=== PATIENT | male | born 1990 | race Hispanic/Latino ===

== ENCOUNTER 2018-10-07 19:18 | Emergency (ER) | payer OTHER ==
--- NOTE | 2018-10-07 20:45 | EDPHYS ---
Physician Documentation [facility] Name: Anton Stacy Age: 27 yrs Sex: Male : 1990 Arrival Date: 10/07/2018 Time: 19:28 Bed 3 Private MD: ED Physician Abdoulaye Santos HPI: 10/07 19:52 This 27 yrs old Male presents to ER via [employer] with complaints of Laceration. jr8 19:52 The patient has a laceration related to: Self Inflicted occurred Snf, and there are no jr8 complicating factors. The injury was self inflicted. The laceration(s) is(are) located on the dorsal aspect of left forearm. Onset: The symptoms/episode began/occurred acutely, today. Associated signs and symptoms: The patient has no apparent associated signs or symptoms. The patient has experienced similar episodes in the past, a few times. The patient has not recently seen a physician. Stated that he was upset and cut himself. Denies suicidal ideations . Historical: - Allergies: 19:36 No Known Allergies; jd3 - Home Meds: 19:36 blood pressure med [Active]; thyroid med [Active]; jd3 - PMHx: 19:36 Hypertension; Thyroid problem; jd3 - PSHx: 19:36 None; jd3 - Immunization history:: Adult Immunizations up to date, Last tetanus immunization: up to date. - Social history:: Smoking status: Patient/guardian denies using tobacco. - Ebola Screening: : Patient negative for fever greater than or equal to 101.5 degrees Fahrenheit, and additional compatible Ebola Virus Disease symptoms. ROS: 19:52 Eyes: Negative for injury, pain, redness, and discharge, ENT: Negative for injury, jr8 pain, and discharge, Neck: Negative for injury, pain, and swelling, Cardiovascular: Negative for chest pain, palpitations, and edema, Respiratory: Negative for shortness of breath, cough, wheezing, and pleuritic chest pain, Abdomen/GI: Negative for abdominal pain, nausea, vomiting, diarrhea, and constipation, Back: Negative for injury and pain, MS/Extremity: Negative for injury and deformity, Neuro: Negative for headache, weakness, numbness, tingling, and seizure. 19:52 Skin: Positive for laceration(s), of the dorsal aspect of left forearm. Exam: 19:52 Eyes: Pupils equal round and reactive to light, extra-ocular motions intact. Lids and jr8 lashes normal. Conjunctiva and sclera are non-icteric and not injected. Cornea within normal limits. Periorbital areas with no swelling, redness, or edema. ENT: Nares patent. No nasal discharge, no septal abnormalities noted. Tympanic membranes are normal and external auditory canals are clear. Oropharynx with no redness, swelling, or masses, exudates, or evidence of obstruction, uvula midline. Mucous membranes moist. Neck: Trachea midline, no thyromegaly or masses palpated, and no cervical lymphadenopathy. Supple, full range of motion without nuchal rigidity, or vertebral point tenderness. No Meningismus. Cardiovascular: Regular rate and rhythm with a normal S1 and S2. No gallops, murmurs, or rubs. Normal PMI, no JVD. No pulse deficits. Respiratory: Lungs have equal breath sounds bilaterally, clear to auscultation and percussion. No rales, rhonchi or wheezes noted. No increased work of breathing, no retractions or nasal flaring. Abdomen/GI: Soft, non-tender, with normal bowel sounds. No distension or tympany. No guarding or rebound. No evidence of tenderness throughout. Back: No spinal tenderness. No costovertebral tenderness. Full range of motion. MS/ Extremity: Pulses equal, no cyanosis. Neurovascular intact. Full, normal range of motion. Neuro: Awake and alert, GCS 15, oriented to person, place, time, and situation. Cranial nerves II-XII grossly intact. Motor strength 5/5 in all extremities. Sensory grossly intact. Cerebellar exam normal. Normal gait. 19:52 Skin: injury, laceration(s), the wound is approximately 8 cm(s), with a depth of 1 cm(s), of the dorsal aspect of left forearm, that can be described as no foreign body, linear, without bleeding. Vital Signs: 19:36 BP 103 / 77; Pulse 64; Resp 17 S; Temp 98.3(O); Pulse Ox 98% on R/A; Weight 195.04 kg jd3 (R); Height 5 ft. 11 in. (180.34 cm) (R); Pain 0/10; 19:36 Body Mass Index 59.97 (195.04 kg, 180.34 cm) jd3 Laceration: 19:52 Wound Repair of 8cm ( 3.1in ) subcutaneous laceration to dorsal aspect of left forearm. jr8 Distal neuro/vascular/tendon intact. Wound prep: Extensive cleansing with betadine, Wound explored extensively. Skin closed with 5 jonn [place] using staple gun. Patient tolerated well. MDM: 19:43 Patient medically screened. [facility] 19:52 Data reviewed: vital signs, nurses notes, and as a result, I will discharge patient. jr8 Data interpreted: Pulse oximetry: on room air is 98 %. Interpretation: normal. Counseling: I had a detailed discussion with the patient and/or guardian regarding: the historical points, exam findings, and any diagnostic results supporting the discharge/admit diagnosis, the need for outpatient follow up, a family practitioner, to return to the emergency department if symptoms worsen or persist or if there are any questions or concerns that arise at home. 19:56 ED course: Patient stated that he is up to date on Tetanus . jr8 Administered Medications: No medications were administered Disposition: 10/08 13:58 Co-signature as Attending Physician, Abdoulaye Santos MD I agree with the assessment and [facility] plan of care. Disposition: 10/07/18 19:56 Discharged to Home. Impression: Laceration without foreign body of left forearm. - Condition is Stable. - Discharge Instructions: Laceration Care, Adult, Stitches, Jonn, or Adhesive Wound Closure. - Medication Reconciliation Form, Thank You Letter, Antibiotic Education, Prescription Opioid Use form. - Follow up: Private Physician; When: 7 - 10 days; Reason: Wound Recheck, Recheck today's complaints, Continuance of care, Staple/Suture removal, Re-evaluation by your physician. - Problem is new. - Symptoms have improved. Signatures: Abdoulaye Santos MD MD cha Roszak, Josh, PA PA jr8 Robert Almeida RN RN jd3 Corrections: (The following items were deleted from the chart) 10/07 20:10 19:56 10/07/2018 19:56 Discharged to Home. Impression: Laceration without foreign body jd3 of left forearm. Condition is Stable. Forms are Medication Reconciliation Form, Thank You Letter, Antibiotic Education, Prescription Opioid Use. Follow up: Private Physician; When: 7 - 10 days; Reason: Wound Recheck, Recheck today's complaints, Continuance of care, Staple/Suture removal, Re-evaluation by your physician. Problem is new. Symptoms have improved. jr8
--- NOTE | 2018-10-07 20:45 | ER ---
Nurse's Notes [facility] Name: Anton Stacy Age: 27 yrs Sex: Male : 1990 Arrival Date: 10/07/2018 Time: 19:28 Bed 3 Private MD: Diagnosis: Laceration without foreign body of left forearm Presentation: 10/07 19:30 Presenting complaint: Patient states: "I cut my self with a razor. I did it because I jd3 was angry, not because I wanted to hurt myself.". Transition of care: patient was not received from another setting of care. Onset of symptoms was October 07, 2018. Risk Assessment: Do you want to hurt yourself or someone else? Patient reports no desire to harm self or others. Initial Sepsis Screen: Does the patient meet any 2 criteria? No. Patient's initial sepsis screen is negative. Does the patient have a suspected source of infection? No. Patient's initial sepsis screen is negative. Care prior to arrival: None. 19:30 Method Of Arrival: [employer]: [employer] jd3 19:30 Acuity: MATT 4 jd3 Historical: - Allergies: 19:36 No Known Allergies; jd3 - Home Meds: 19:36 blood pressure med [Active]; thyroid med [Active]; jd3 - PMHx: 19:36 Hypertension; Thyroid problem; jd3 - PSHx: 19:36 None; jd3 - Immunization history:: Adult Immunizations up to date, Last tetanus immunization: up to date. - Social history:: Smoking status: Patient/guardian denies using tobacco. - Ebola Screening: : Patient negative for fever greater than or equal to 101.5 degrees Fahrenheit, and additional compatible Ebola Virus Disease symptoms. Screenin:39 Abuse screen: Denies threats or abuse. Nutritional screening: No deficits noted. jd3 Tuberculosis screening: No symptoms or risk factors identified. Fall Risk Ambulatory Aid- None/Bed Rest/Nurse Assist (0 pts). Gait- Normal/Bed Rest/Wheelchair (0 pts) Mental Status- Oriented to own ability (0 pts). Total Valero Fall Scale indicates No Risk (0-24 pts). Assessment: 19:37 General: Appears in no apparent distress. uncomfortable, Behavior is calm, cooperative, jd3 appropriate for age. Pain: Denies pain. Neuro: Level of Consciousness is awake, alert, obeys commands, Oriented to person, place, time, situation, Appropriate for age. Cardiovascular: Denies chest pain, Capillary refill < 3 seconds Patient's skin is warm and dry. Respiratory: Airway is patent Respiratory effort is even, unlabored, Respiratory pattern is regular, symmetrical, Denies shortness of breath. GI: No signs and/or symptoms were reported involving the gastrointestinal system. : No signs and/or symptoms were reported regarding the genitourinary system. EENT: No signs and/or symptoms were reported regarding the EENT system. Derm: Skin is intact, Skin is dry, Skin is normal, Skin temperature is warm Wound noted dorsal aspect of left forearm Wound is Laceration noted to left forearm. Musculoskeletal: Circulation, motion, and sensation intact. Range of motion: intact in all extremities. Injury Description: Laceration sustained to dorsal aspect of left forearm is clean, 7.6 to 20 cm long, not bleeding, a small amount of bleeding noted at this time. 20:09 Reassessment: Patient appears in no apparent distress at this time. Patient and/or jd3 family updated on plan of care and expected duration. Pain level reassessed. Patient is alert, oriented x 3, equal unlabored respirations, skin warm/dry/pink. reported understanding of discharge instructions. Patient denies pain at this time. Vital Signs: 19:36 BP 103 / 77; Pulse 64; Resp 17 S; Temp 98.3(O); Pulse Ox 98% on R/A; Weight 195.04 kg j (R); Height 5 ft. 11 in. (180.34 cm) (R); Pain 0/10; 19:36 Body Mass Index 59.97 (195.04 kg, 180.34 cm) [facility] ED Course: 19:28 Patient arrived in ED. jd3 19:30 Robert Almeida RN is Primary Nurse. jd3 19:34 Triage completed. jd3 19:37 Arm band placed on. jd3 19:40 Patient has correct armband on for positive identification. Bed in low position. Call [facility] light in reach. Side rails up X2. Adult w/ patient. 19:43 Abdoulaye Santos MD is Attending Physician. [facility] 19:52 Rian Delaney PA is PHCP. [facility] 19:52 Assist provider with laceration repair on dorsal aspect of left forearm that was jd3 between 7.6 to 12.5 cm using tiffanie. Set up tray. Performed by Rian DEL RIO Patient tolerated well. Patient did not have IV access during this emergency room visit. Administered Medications: No medications were administered Outcome: 19:56 Discharge ordered by . jr8 20:08 Discharged to home ambulatory, with [employer]. jd3 20:08 Condition: stable 20:08 Discharge instructions given to patient, [employer] Instructed on discharge instructions, follow up and referral plans. wound care, Demonstrated understanding of instructions, follow-up care. 20:10 Patient left the ED. jd3 Signatures: Abdoulaye Santos MD MD cha Roszak, Josh, PA PA jrRobert Castillo, RN RN jd3
== END 2018-10-07 20:10 | disposition home or self-care (01) ==
LOC: EDSEX 19:18 → ER 19:18
PROC: 0JQH0ZZ Repair Left Lower Arm Subcutaneous Tissue and Fascia, Open Approach (ICD-10-PCS; principal; 2018-10-07)
DX: S51.812A Laceration without foreign body of left forearm, initial encounter (principal); Y28.9XXA Contact with unspecified sharp object, undetermined intent, initial encounter; Y93.9 Activity, unspecified; Y92.149 Unspecified place in prison as the place of occurrence of the external cause; I10 Essential (primary) hypertension; E07.9 Disorder of thyroid, unspecified
CPT/HCPCS: 99283

== ENCOUNTER 2019-11-02 23:51 | Inpatient (IN) | payer OTHER ==
--- NOTE | 2019-11-03 00:38 | EDPHYS ---
Physician Documentation [facility] Name: Anton Stacy Age: 28 yrs Sex: Male : 1990 Arrival Date: 11/02/2019 Time: 23:56 Bed 6 Private MD: ANAT Physician Abdoulaye Santos HPI: 11/02 00:39 This 28 yrs old Male presents to ER via [employer] with complaints of gurmeet fever and right leg pain. Historical: - Allergies: 00:45 PENICILLINS; sg 00:45 trazodone; sg - Home Meds: 00:45 lisinopril 20 mg Oral tab 1 tab once daily [Active]; Colace 100 mg oral cap 1 cap 2 sg times per day [Active]; K Dur 10 mEq daily [Active]; Lasix 20 mg Oral tab 2 tabs 2 times per day [Active]; Prilosec 20 mg Oral cpDR 1 cap once daily [Active]; Synthroid 25 mcg Oral tab 1 tab once daily [Active]; Tegretol 200 mg Oral tab 2 tabs every evening [Active]; - PMHx: 00:23 Thyroid problem; mg2 00:45 hypotension; Hypothyroidism; Hyperglycemia; Hematochezia; Obesity; sg - Immunization history:: Flu vaccine status is unknown. - Social history:: Smoking status: unknown. ROS: 00:51 Eyes: Negative for injury, pain, redness, and discharge, ENT: Negative for injury, gurmeet pain, and discharge, Neck: Negative for injury, pain, and swelling, Respiratory: Negative for shortness of breath, cough, wheezing, and pleuritic chest pain, Back: Negative for injury and pain, : Negative for injury, bleeding, discharge, and swelling, MS/Extremity: Negative for injury and deformity, Neuro: Negative for headache, weakness, numbness, tingling, and seizure, Psych: Negative for depression, anxiety, suicide ideation, homicidal ideation, and hallucinations, Allergy/Immunology: Negative for hives, rash, and allergies, Endocrine: Negative for neck swelling, polydipsia, polyuria, polyphagia, and marked weight changes, Hematologic/Lymphatic: Negative for swollen nodes, abnormal bleeding, and unusual bruising. 00:51 Constitutional: Positive for body aches, chills, fatigue, fever, malaise, poor PO intake. 00:51 Cardiovascular: Positive for palpitations. 00:51 Abdomen/GI: Positive for diarrhea. 00:51 MS/extremity: Positive for decreased range of motion, erythema, pain, swelling, tenderness, of the right leg. Exam: 00:51 Head/Face: Normocephalic, atraumatic. Eyes: Pupils equal round and reactive to light, gurmeet extra-ocular motions intact. Lids and lashes normal. Conjunctiva and sclera are non-icteric and not injected. Cornea within normal limits. Periorbital areas with no swelling, redness, or edema. ENT: Nares patent. No nasal discharge, no septal abnormalities noted. Tympanic membranes are normal and external auditory canals are clear. Oropharynx with no redness, swelling, or masses, exudates, or evidence of obstruction, uvula midline. Mucous membranes moist. Neck: Trachea midline, no thyromegaly or masses palpated, and no cervical lymphadenopathy. Supple, full range of motion without nuchal rigidity, or vertebral point tenderness. No Meningismus. Chest/axilla: Normal chest wall appearance and motion. Nontender with no deformity. No lesions are appreciated. Respiratory: Lungs have equal breath sounds bilaterally, clear to auscultation and percussion. No rales, rhonchi or wheezes noted. No increased work of breathing, no retractions or nasal flaring. Abdomen/GI: Soft, non-tender, with normal bowel sounds. No distension or tympany. No guarding or rebound. No evidence of tenderness throughout. Back: No spinal tenderness. No costovertebral tenderness. Full range of motion. Male : Normal genitalia with no discharge or lesions. Neuro: Awake and alert, GCS 15, oriented to person, place, time, and situation. Cranial nerves II-XII grossly intact. Motor strength 5/5 in all extremities. Sensory grossly intact. Cerebellar exam normal. Normal gait. Psych: Awake, alert, with orientation to person, place and time. Behavior, mood, and affect are within normal limits. 00:51 Constitutional: The patient appears febrile. 00:51 Cardiovascular: Rate: tachycardic, Rhythm: regular, Pulses: Pulses are 4+ in bilateral radial, brachial, femoral, popliteal, posterior tibial and and dorsalis pedis arteries.. Heart sounds: normal, Edema: is not appreciated, JVD: is not appreciated. 00:51 ECG was reviewed by the Attending Physician. 00:51 Respiratory: the patient does not display signs of respiratory distress, Respirations: normal, no acute changes, labored breathing, is not present, Breath sounds: are clear throughout, Respiratory rate: 25 00:51 Musculoskeletal/extremity: Extremities: noted in the right leg: decreased ROM, erythema, pain, swelling, tenderness, Circulation is intact in all extremities. Sensation intact. Compartment Syndrome exam of affected extremity: is normal. Weight bearing: able to fully bear weight, DVT Exam: negative Homans' sign noted on exam, no appreciated bluish discoloration, pain, swelling, tenderness, erythema, increased warmth. Vital Signs: 00:03 BP 126 / 42; Pulse 126; Resp 25; Temp 104(O); Pulse Ox 97% on R/A; rv 00:28 Weight 204.12 kg; mg2 01:37 BP 134 / 34; Pulse 122; Resp 18; Pulse Ox 100% ; mg2 02:10 Temp 102.8(O); mg2 02:45 BP 105 / 43; Pulse 118; Resp 18; Pulse Ox 100% on R/A; mg2 04:17 Height 5 ft. 11 in. (180.34 cm) (R); sg 04:58 BP 92 / 32 LA Supine (auto/reg); Pulse 100 MON; Resp 20 S; Temp 99.9(A); Pulse Ox 97% ds4 on R/A; 06:56 BP 96 / 47; Pulse 99; Resp 18; Temp 98.7(O); Pulse Ox 100% ; mg2 04:17 Body Mass Index 62.76 (204.12 kg, 180.34 cm) sg MDM: 11/01 23:56 Patient medically screened. gurmeet 11/02 00:54 Differential diagnosis: contusion, Nonspecific abd pain, gastroenteritis, bacterial gurmeet infection, URI, pneumonia UTI, gastroenteritis. Data reviewed: vital signs, nurses notes, EMS record, lab test result(s), EKG, radiologic studies, plain films. Data interpreted: shank threader: rate is 126 beats/min, rhythm is regular, Pulse oximetry: is 97 %. Interpretation: normal. Test interpretation: by ED physician or midlevel provider: ECG, plain radiologic studies. Counseling: I had a detailed discussion with the patient and/or guardian regarding: the historical points, exam findings, and any diagnostic results supporting the discharge/admit diagnosis, the presence of at least one elevated blood pressure reading (>120/80) during this emergency department visit, lab results, radiology results, the need to transfer to another facility, for higher level of care, [facility] does not immediately have the required specialist, TD PATIENT. Medication response: acetaminophen administration has lowered the patient's temperature. ED course: CALL INITIATE TO JULIETH BAE. 01:48 [facility] 11/02 00:27 Order name: Glucose, Ancillary Testing; Complete Time: 01:30 EDMS 11/02 00:28 Order name: Basic Metabolic Panel [facility] 11/02 00:28 Order name: CBC with Diff [facility] 11/02 00:28 Order name: LFT's [facility] 11/02 00:28 Order name: Magnesium [facility] 11/02 00:28 Order name: NT PRO-BNP [facility] 11/02 00:28 Order name: PT-INR; Complete Time: 01:30 [facility] 11/02 00:28 Order name: Troponin (emerg Dept Use Only); Complete Time: 01:59 [facility] 11/02 00:28 Order name: Lipase; Complete Time: 01:59 [facility] 11/02 00:28 Order name: Lactate; Complete Time: 01:47 [facility] 11/02 00:28 Order name: Procalcitonin; Complete Time: 01:47 [facility] 11/02 00:28 Order name: Basic Metabolic Panel; Complete Time: 01:59 EDMS 11/02 00:28 Order name: CBC with Automated Diff; Complete Time: 01:47 EDNJ 11/02 00:28 Order name: Liver (Hepatic) Function; Complete Time: 01:59 EDNJ 11/02 00:29 Order name: Magnesium; Complete Time: 01:59 EDNJ 11/02 00:29 Order name: NT PRO-BNP; Complete Time: 01:59 EDNJ 11/02 01:16 Order name: Manual Differential; Complete Time: 01:47 EDNJ 11/02 01:35 Order name: Blood Culture Adult (2) g[place]meet 11/02 01:35 Order name: Fecal Leukocyte Stain g[place]meet 11/02 01:35 Order name: Stool Culture [facility] 11/02 01:36 Order name: Blood Culture Adult (2) mg2 11/02 01:39 Order name: Carbamazepine (Tegretol) Level; Complete Time: 01:59 EDNJ 11/02 01:47 Order name: COVID-19; Complete Time: 08:18 [facility] 11/02 03:30 Order name: Basic Metabolic Panel; Complete Time: 08:18 EDMS 11/02 03:30 Order name: C-Reactive Protein; Complete Time: 08:18 EDMS 11/02 03:30 Order name: CBC with Automated Diff; Complete Time: 08:18 EDMS 11/02 03:30 Order name: Lactate [facility] 11/02 03:30 Order name: Magnesium; Complete Time: 08:18 EDMS 11/02 03:30 Order name: Procalcitonin; Complete Time: 08:18 EDMS 11/02 00:28 Order name: XRAY Chest (1 view) [facility] 11/02 00:28 Order name: EKG; Complete Time: 00:29 [facility] 11/02 00:28 Order name: Cardiac monitoring; Complete Time: 00:29 [facility] 11/02 00:28 Order name: EKG - Nurse/Tech; Complete Time: 00:29 [facility] 11/02 00:28 Order name: IV Saline Lock; Complete Time: 00:29 [facility] 11/02 00:28 Order name: Labs collected and sent; Complete Time: 00:29 [facility] 11/02 00:28 Order name: O2 Per Protocol; Complete Time: 00:29 [facility] 11/02 00:28 Order name: O2 Sat Monitoring; Complete Time: 00:29 [facility] 11/02 00:28 Order name: IV Saline Lock - Large Bore; Complete Time: 00:29 [facility] 11/02 00:28 Order name: Urine Dipstick-Ancillary (obtain specimen); Complete Time: 06:21 [facility] 11/02 01:53 Order name: US Extremity Venous W Compression Omkar [facility] 11/02 02:33 Order name: Knee Right 2 View XRAY [facility] 11/02 03:28 Order name: CONS Pharmacy Consult EDN[facility] 11/02 03:28 Order name: CONS Pharmacy Consult [facility] 11/02 03:28 Order name: NPO EDNJ 11/02 06:18 Order name: Lactate Sepsis 2 HR Follow-up; Complete Time: 08:18 EDMS 11/02 06:37 Order name: Glucose, Ancillary Testing; Complete Time: 08:18 EDMS EC:51 Rate is 133 beats/min. Rhythm is regular. QRS [place] is Normal. [place] interval is normal. gurmeet QRS interval is normal. QT interval is normal. No Q waves. T waves are Normal. No ST changes noted. Clinical impression: Sinus tachycardia and No evidence of ischemia. Interpreted by me. Reviewed by me. Administered Medications: 00:40 Not Given (Duplicate Order): Zosyn 4.5 grams IVPB once over 60 mins; (mix in 100 mL NS) gurmeet 00:57 Drug: NS 0.9% (30 ml/kg) 30 ml/kg Route: IV; Rate: bolus; Site: right antecubital; mg2 06:21 Follow up: Response: No adverse reaction; IV Status: Completed infusion; IV Intake: mg2 6000ml 00:57 Drug: Tylenol 1000 mg Route: PO; mg2 06:21 Follow up: Response: No adverse reaction mg2 00:57 Drug: Pepcid 20 mg Route: IVP; Site: right antecubital; mg2 06:20 Follow up: Response: No adverse reaction mg2 00:57 Drug: Lovenox 100 mg Route: Sub-Q; Site: right lower abdomen; mg2 06:20 Follow up: Response: No adverse reaction mg2 01:18 Drug: vancoMYCIN 2 grams Route: IVPB; Rate: calculated rate; Site: right antecubital; mg2 06:21 Follow up: Response: No adverse reaction; IV Status: Completed infusion mg2 01:43 Drug: Magnesium Sulfate 1 grams Route: IVPB; Infused Over: 1 hrs; Site: right mg2 antecubital; 06:20 Follow up: Response: No adverse reaction; IV Status: Completed infusion mg2 02:06 Drug: Motrin 800 mg Route: PO; mg2 06:20 Follow up: Response: No adverse reaction; Temperature is decreased mg2 02:41 Drug: Cefepime 2 grams Route: IVPB; Rate: 200 ml/hr; Infused Over: 30 mins; Site: left mg2 forearm; 06:19 Follow up: Response: No adverse reaction; IV Status: Completed infusion mg2 07:13 Drug: Zofran (Ondansetron) 4 mg Route: IVP; Site: right antecubital; mg2 07:48 Follow up: Response: Nausea is decreased bp Disposition: 11/03/19 01:54 Hospitalization ordered by Dominic Darby for Inpatient Admission. Preliminary diagnosis are Severe sepsis, Cellulitis and acute lymphangitis of other parts of limb - Right lower extremity, Morbid (severe) obesity due to excess calories, Anemia, unspecified, Diarrhea, unspecified, Fever, unspecified, Bandemia. - Bed requested for Telemetry/MedSurg (Inpatient). - Status is Inpatient Admission. rb1 - Condition is Fair. - Problem is new. - Symptoms have improved. Signatures: Dispatcher [employer] EDNJ Mal Reis RN RN sg Abdoulaye Santos MD MD cha Garcia, Cindy, RN RN Darlin Rowe RN RN rb1 Drew Arauz RN RN mg2 Conrad Kaiser RN bp Corrections: (The following items were deleted from the chart) 00:45 00:23 Home Meds: blood pressure med; mg2 sg 00:45 00:23 Home Meds: Thyroid Med; mg2 sg :45 00:23 PMHx: Hypertension; mg2 sg :45 00:23 Allergies: No Known Allergies; mg2 01:33 00:37 11/03/2019 00:37 Transfer ordered to [facility]. Diagnosis is Fever, gurmeet unspecified; Cellulitis and acute lymphangitis of other parts of limb - left lower extremity; Morbid (severe) obesity due to excess calories. Reason for transfer: Higher level of care. Accepting physician is yina barrera. Condition is Fair. Problem is new. Symptoms have improved. gurmeet 01:39 01:37 CARBAMAZEPINE (TEGRETOL)+C.LAB.BRZ ordered. [facility] EDMS 01:49 01:33 11/03/2019 00:37 Transfer ordered to [facility]. Diagnosis is Fever, gurmeet unspecified; Cellulitis and acute lymphangitis of other parts of limb - left lower extremity; Morbid (severe) obesity due to excess calories; Diarrhea, unspecified; Anemia, unspecified. Reason for transfer: Higher level of care. Accepting physician is yina barrera. Condition is Fair. Problem is new. Symptoms have improved. gurmeet 03:35 01:54 Hospitalization Ordered by Dominic Darby MD for Inpatient Admission. Preliminary cg diagnosis is Severe sepsis; Cellulitis and acute lymphangitis of other parts of limb - Right lower extremity; Morbid (severe) obesity due to excess calories; Anemia, unspecified; Diarrhea, unspecified; Fever, unspecified. Bed requested for Telemetry/MedSurg (Inpatient). Status is Inpatient Admission. Condition is Fair. Problem is new. Symptoms have improved. gurmeet 06:48 03:35 11/03/2019 01:54 Hospitalization Ordered by Dominic Darby MD for Inpatient cg Admission. Preliminary diagnosis is Severe sepsis; Cellulitis and acute lymphangitis of other parts of limb - Right lower extremity; Morbid (severe) obesity due to excess calories; Anemia, unspecified; Diarrhea, unspecified; Fever, unspecified. Bed requested for [facility] ER HOLD. Status is Inpatient Admission. Condition is Fair. Problem is new. Symptoms have improved. 08:21 06:48 11/03/2019 01:54 Hospitalization Ordered by Dominic Darby MD for Inpatient gurmeet Admission. Preliminary diagnosis is Severe sepsis; Cellulitis and acute lymphangitis of other parts of limb - Right lower extremity; Morbid (severe) obesity due to excess calories; Anemia, unspecified; Diarrhea, unspecified; Fever, unspecified. Bed requested for Telemetry/MedSurg (Inpatient). Status is Inpatient Admission. Condition is Fair. Problem is new. Symptoms have improved. 08:28 08:21 11/03/2019 01:54 Hospitalization Ordered by Dominic Darby MD for Inpatient rb1 Admission. Preliminary diagnosis is Severe sepsis; Cellulitis and acute lymphangitis of other parts of limb - Right lower extremity; Morbid (severe) obesity due to excess calories; Anemia, unspecified; Diarrhea, unspecified; Fever, unspecified; Bandemia. Bed requested for Telemetry/MedSurg (Inpatient). Status is Inpatient Admission. Condition is Fair. Problem is new. Symptoms have improved. [facility]
--- NOTE | 2019-11-03 00:38 | ER ---
Nurse's Notes [facility] Name: Anton Stacy Age: 28 yrs Sex: Male : 1990 Arrival Date: 11/02/2019 Time: 23:56 Bed 6 Private MD: Diagnosis: Severe sepsis;Cellulitis and acute lymphangitis of other parts of limb-Right lower extremity;Morbid (severe) obesity due to excess calories;Anemia, unspecified;Diarrhea, unspecified;Fever, unspecified;Bandemia Presentation: 11/02 00:21 Chief complaint: EMS states: patient was COVID positive 2 months ago. today he is here mg2 for fever and diarrhea. denies cough and shortness of breath. Coronavirus screen: Surgical mask placed on patient. Patient moved to private room, placed in contact and droplet isolation with eye protection until further assessment. Patient denies a cough. Patient denies shortness of breath or difficulty breathing. Patient reports a measured and/or subjective temperature greater than 100.4F. Patient denies travel on a cruise ship or to a country the [facility] currently lists as an affected area. Patient denies contact with known and/or suspected case of COVID-19. Ebola Screen: No symptoms or risks identified at this time. Initial Sepsis Screen: Does the patient meet any 2 criteria? Temp <36.0*C (96.8*F)) or > 38.3*C (100.9*F). HR > 90 bpm. Yes Does the patient have a suspected source of infection? Yes:. Risk Assessment: Do you want to hurt yourself or someone else? Patient reports no desire to harm self or others. Onset of symptoms was November 02, 2019. 00:21 Method Of Arrival: [employer] mg2 00:21 Acuity: MATT 3 mg2 Historical: - Allergies: 00:45 PENICILLINS; sg 00:45 trazodone; sg - Home Meds: 00:45 lisinopril 20 mg Oral tab 1 tab once daily [Active]; Colace 100 mg oral cap 1 cap 2 sg times per day [Active]; K Dur 10 mEq daily [Active]; Lasix 20 mg Oral tab 2 tabs 2 times per day [Active]; Prilosec 20 mg Oral cpDR 1 cap once daily [Active]; Synthroid 25 mcg Oral tab 1 tab once daily [Active]; Tegretol 200 mg Oral tab 2 tabs every evening [Active]; - PMHx: 00:23 Thyroid problem; mg2 00:45 hypotension; Hypothyroidism; Hyperglycemia; Hematochezia; Obesity; sg - Immunization history:: Flu vaccine status is unknown. - Social history:: Smoking status: unknown. Screenin:24 Abuse screen: Denies threats or abuse. Denies injuries from another. Nutritional mg2 screening: No deficits noted. Tuberculosis screening: Fall Risk IV access (20 points). Assessment: 00:23 General: Appears in no apparent distress. comfortable, Behavior is calm, cooperative. mg2 Pain: Denies pain. Neuro: Level of Consciousness is awake, alert, obeys commands, Oriented to person, place, time, situation. Cardiovascular: Capillary refill < 3 seconds Patient's skin is warm and dry. Respiratory: Airway is patent Respiratory effort is even, unlabored, Respiratory pattern is regular, symmetrical. GI: Reports diarrhea. : No signs and/or symptoms were reported regarding the genitourinary system. EENT: No signs and/or symptoms were reported regarding the EENT system. Derm: Skin is intact, is healthy with good turgor, Skin is pink, warm \T\ dry. normal. Musculoskeletal: Circulation, motion, and sensation intact. Capillary refill < 3 seconds. 01:37 Reassessment: Patient appears in no apparent distress at this time. Patient and/or mg2 family updated on plan of care and expected duration. Pain level reassessed. Patient is alert, oriented x 3, equal unlabored respirations, skin warm/dry/pink. Vital Signs: 00:03 BP 126 / 42; Pulse 126; Resp 25; Temp 104(O); Pulse Ox 97% on R/A; rv 00:28 Weight 204.12 kg; mg2 01:37 BP 134 / 34; Pulse 122; Resp 18; Pulse Ox 100% ; mg2 02:10 Temp 102.8(O); mg2 02:45 BP 105 / 43; Pulse 118; Resp 18; Pulse Ox 100% on R/A; mg2 04:17 Height 5 ft. 11 in. (180.34 cm) (R); sg 04:58 BP 92 / 32 LA Supine (auto/reg); Pulse 100 MON; Resp 20 S; Temp 99.9(A); Pulse Ox 97% ds4 on R/A; 06:56 BP 96 / 47; Pulse 99; Resp 18; Temp 98.7(O); Pulse Ox 100% ; mg2 04:17 Body Mass Index 62.76 (204.12 kg, 180.34 cm) ED Course: 11/01 23:56 Patient arrived in ED. rv 23:56 Abdoulaye Santos MD is Attending Physician. gurmeet 11/02 00:02 Hank Kerr, BG is Primary Nurse. rv 00:22 Triage completed. mg2 00:24 Patient has correct armband on for positive identification. monitor technician on. Pulse mg2 ox on. NIBP on. Door closed. 00:24 Arm band placed on. mg2 00:24 No provider procedures requiring assistance completed. Inserted saline lock: 20 gauge mg2 in right antecubital area, using aseptic technique. Blood collected. 01:24 XRAY Chest (1 view) In Process Unspecified. EDMS 01:53 Dominic Darby MD is Hospitalizing Provider. gurmeet 03:03 Inserted saline lock: 18 gauge in left antecubital area, using aseptic technique. rv 03:12 US Extremity Venous W Compression Omkar In Process Unspecified. EDMS 03:36 Knee Right 2 View XRAY In Process Unspecified. EDMS 07:21 Primary Nurse role handed off by Hank Kerr RN rb1 07:21 Darlin Rowe, BG is Primary Nurse. rb1 08:22 Patient admitted, IV remains in place. rb1 Administered Medications: 00:40 Not Given (Duplicate Order): Zosyn 4.5 grams IVPB once over 60 mins; (mix in 100 mL NS) gurmeet 00:57 Drug: NS 0.9% (30 ml/kg) 30 ml/kg Route: IV; Rate: bolus; Site: right antecubital; mg2 06:21 Follow up: Response: No adverse reaction; IV Status: Completed infusion; IV Intake: mg2 6000ml 00:57 Drug: Tylenol 1000 mg Route: PO; mg2 06:21 Follow up: Response: No adverse reaction mg2 00:57 Drug: Pepcid 20 mg Route: IVP; Site: right antecubital; mg2 06:20 Follow up: Response: No adverse reaction mg2 00:57 Drug: Lovenox 100 mg Route: Sub-Q; Site: right lower abdomen; mg2 06:20 Follow up: Response: No adverse reaction mg2 01:18 Drug: vancoMYCIN 2 grams Route: IVPB; Rate: calculated rate; Site: right antecubital; mg2 06:21 Follow up: Response: No adverse reaction; IV Status: Completed infusion mg2 01:43 Drug: Magnesium Sulfate 1 grams Route: IVPB; Infused Over: 1 hrs; Site: right mg2 antecubital; 06:20 Follow up: Response: No adverse reaction; IV Status: Completed infusion mg2 02:06 Drug: Motrin 800 mg Route: PO; mg2 06:20 Follow up: Response: No adverse reaction; Temperature is decreased mg2 02:41 Drug: Cefepime 2 grams Route: IVPB; Rate: 200 ml/hr; Infused Over: 30 mins; Site: left mg2 forearm; 06:19 Follow up: Response: No adverse reaction; IV Status: Completed infusion mg2 07:13 Drug: Zofran (Ondansetron) 4 mg Route: IVP; Site: right antecubital; mg2 07:48 Follow up: Response: Nausea is decreased bp Intake: 06:21 IV: 6000ml; Total: 6000ml. mg2 Outcome: 00:37 ER care complete, transfer ordered by . gurmeet 01:54 Decision to Hospitalize by Provider. gurmeet 08:21 Admitted to Tele accompanied by nurse, room 412, with chart, Other On hospital bed. rb1 08:21 Condition: stable 08:21 Instructed on the need for admit. 08:28 Patient left the ED. rb1 Signatures: Dispatcher [employer] EDMS Mal Reis RN RN sg Anderson, Corey, MD MD cha Swanson, Donovan ds4 Darlin Rowe RN RN rb1 Conrad Kaiser RN RN bp [place], Michele, RN RN mg2 Hank Kerr RN RN rv Corrections: (The following items were deleted from the chart) 00:45 00:23 Home Meds: blood pressure med; mg2 sg 00:45 00:23 Home Meds: Thyroid Med; mg2 sg 00:45 00:23 PMHx: Hypertension; mg2 sg 00:45 00:23 Allergies: No Known Allergies; mg2 sg 06:28 04:17 Height 6 ft. 0 in. Reported; BMI: 61.0; sg sg
[2019-11-03] MEDS ORDERED: ACETAMINOPHEN 500 MG TAB ONE (00:41)
[2019-11-03] MEDS ORDERED: FAMOTIDINE 20 MG/2 ML VIAL IV ONE (00:41)
[2019-11-03] MEDS ORDERED: NA CHLORIDE 0.9% 100 ML IV ONE ×2 (00:41→02:47)
[2019-11-03] MEDS ORDERED: PIPERACIL/TAZO 4.5 GM VIAL IV ONE (00:41)
[2019-11-03] MEDS ORDERED: NA CHLORIDE 0.9% ONE (00:41)
[2019-11-03] MEDS ORDERED: ENOXAPARIN 100 MG/ML SYR SQ ONE (00:41)
[2019-11-03 01:05] LABS: Absolute Lymphocytes (CBC) 0.8 K/uL (0.7-4.9); Basophils % 0.2 % (0-1.3); Hematocrit 34.3 % (39.6-49.0); Lymphocytes % 7.8 % (15.3-44.8); MPV 10.2 fL (7.6-11.3); RBC Red Blood Cell Count 4.11 M/uL (4.33-5.43)
[2019-11-03 01:06] LABS: Protime INR 1.05
[2019-11-03] MEDS ORDERED: NA CHLORIDE 0.9% 500 ML ONE (01:10)
[2019-11-03] MEDS ORDERED: VANCOMYCIN 1 GM/VIAL ONE (01:10)
[2019-11-03 01:27] LABS: ALT/SGPT 30 U/L (12-78); AST/SGOT 20 U/L (15-37); Albumin 3.2 g/dL (3.4-5.0); Alkaline Phosphatase 66 U/L (45-117); BUN Blood Urea Nitrogen 21 mg/dL (7-18); Bicarbonate 23 mmol/L (21-32); Bilirubin Direct 0.1 mg/dL (0-0.2); Bilirubin Total 0.4 mg/dL (0.2-1.0); Glucose Level 100 mg/dL (74-106); Lipase 57 U/L (73-393); Magnesium 1.7 mg/dL (1.8-2.4); NT PRO-BNP 96 pg/mL (<125); Potassium 3.8 mmol/L (3.5-5.1); Sodium Level 139 mmol/L (136-145); Troponin (Emerg Dept Use Only) < 0.02 ng/mL (0.0-0.045)
[2019-11-03 01:35] LABS: Blood Morphology Comment NOT SEEN (NOT SEEN); Platelet Estimate ADEQ
[2019-11-03] MEDS ORDERED: MAGNESIUM SULFATE 1 gm IVPB 1 GM/100 ML BAG IV ONE (01:47)
[2019-11-03] MEDS ORDERED: IBUPROFEN 400 MG TAB ONE (02:11)
[2019-11-03] MEDS ORDERED: CEFEPIME 2 GM VIAL ONE (02:47)
[2019-11-03] MEDS ORDERED: ONDANSETRON 4 MG/2 ML VIAL IV PRN (03:24)
[2019-11-03] MEDS ORDERED: VANCOMYCIN 1.75 GM in NA CHLORIDE 0.9% 500 ML IVPB SCH (03:26)
[2019-11-03] MEDS: Levofloxacin 750mg IV 750 MG/150 ML BAG IV SCH (04:00)
[2019-11-03] MEDS: NA CHLORIDE 0.9% 1,000 ML IV SCH ×3 (04:00→17:45)
[2019-11-03] MEDS ORDERED: HYDROCORTISONE SUC 100 MG INJ IV ONE (06:00)
[2019-11-03 06:22] LABS: Absolute Lymphocytes (CBC) 1.1 K/uL (0.7-4.9); Basophils % 0.3 % (0-1.3); Hematocrit 30.8 % (39.6-49.0); Lymphocytes % 6.7 % (15.3-44.8); MPV 10.1 fL (7.6-11.3); RBC Red Blood Cell Count 3.65 M/uL (4.33-5.43)
[2019-11-03 06:41] VITALS: BMI 62.7
[2019-11-03] MEDS ORDERED: ONDANSETRON 4 MG/2 ML VIAL ONE (07:02)
--- NOTE | 2019-11-03 07:23 | EKG ---
Test Date: 2019-11-03 Test Time: 00:11:18 [employer] De[employer] Operator: YISSEL MEASUREMENT RESULTS: Intervals: Rate: 133 NV: 132 QRSD: 74 QT: 298 QTc: 443 [place]: P: 51 NV: 132 QRS: 31 T: 26 INTERPRETIVE STATEMENTS: Sinus tachycardia Otherwise normal ECG No previous ECG available for comparison Electronically Signed On 11-03-19 07:22:52 CDT by Sameer Phelan
[2019-11-03 07:29] LABS: C-Reactive Protein 30.3 mg/L (<3.00); Magnesium 1.7 mg/dL (1.8-2.4); Potassium 3.5 mmol/L (3.5-5.1)
[2019-11-03] MEDS: LACTOBACILLUS/ACIDOPHILUS TAB PO SCH ×3 (08:18→21:45)
--- NOTE | 2019-11-03 08:23 | RAD REPORT ---
EXAM DESCRIPTION: RAD - Chest Single View - 11/03/2019 1:24 am CLINICAL HISTORY: COUGH, history of positive COVID test COMPARISON: None TECHNIQUE: AP portable chest image was obtained 11/03/2019 1:24 am . FINDINGS: Lung volumes are low. No dense consolidation or mass. There is some questionable hazy alve olar opacification in the lower left lung field. However, this area is limited due to film technique, inspiratory effort and prominent overlying soft tissues. Heart and vasculature are normal. No measurable pleural effusion and no pneumothorax. No acute bony abnormality seen. No acute aortic findings suspected. IMPRESSION: Exam is limited as detailed. No definitive lung parenchymal process.
--- NOTE | 2019-11-03 08:23 | RAD REPORT ---
EXAM DESCRIPTION: US - Extrem Venous W Compress Omkar - 11/03/2019 3:19 am CLINICAL HISTORY: DVT;Pain;Swelling COMPARISON: None. TECHNIQUE: Real-time sonographic evaluation of the bilateral lower extremity common femoral, superfi cial femoral, popliteal and posterior tibial veins was performed. FINDINGS: Normal compressibility, flow augmentation, phasic flow and spontaneous flow are identified in the left and right lower extremity common femoral, superficial femoral, popliteal and posterior t ibial veins. No intraluminal filling defects seen. Exam was limited. Patient was unable to tolerate optimal compression. Preliminary findings provided to the physician at the time of the study. IMPRESSION: No DVT in either lower extremity.
--- NOTE | 2019-11-03 08:25 | RAD REPORT ---
EXAM DESCRIPTION: RAD - Knee Right 2 View - 11/03/2019 3:36 am CLINICAL HISTORY: PAIN COMPARISON: No comparisons FINDINGS: A limited portable AP and lateral examination performed. Lateral positioning is not optima l. No accurate assessment can be made of joint effusion. No fracture or acute bone process identifiable. No joint space narrowing. Edema changes are seen in t he fatty tissues around the knee. No air or foreign body. IMPRESSION: Limited but grossly unremarkable bone and joint assessment right knee. Edema changes in the subcutaneous fatty tissues surrounding the knee and lower leg. Clinical concerns for internal derangement or occult bony injury could be further assessed with MR imaging.
[2019-11-03] MEDS ORDERED: CLINDAMYCIN INJ 600 MG in NA CHLORIDE 0.9% 50 ML IV SCH (09:00)
[2019-11-03] MEDS ORDERED: PNEUMOCOCCAL VACCINE 0.5 ML IMVAC ONE (09:00)
[2019-11-03] MEDS: MORPHINE 4 MG/ML SYR IV PRN ×2 (09:27→21:46)
[2019-11-03] MEDS: ACETAMINOPHEN 500 MG TAB PO PRN ×2 (12:27→21:45)
--- NOTE | 2019-11-03 12:36 | P.HP ---
Certification for Inpatient Patient admitted to: Inpatient With expected LOS: >2 Midnights Patient will require the following post-hospital care: None Practitioner: I am a practitioner with admitting privileges, knowledge of patient current condition, hospital course, and medical plan of care. Services: Services provided to patient in accordance with Admission requirements found in Title 42 Section 412.3 of the Code of Federal Regulations Patient History Date of Service: 11/03/19 Reason for admission: RIGHT LOWER EXTREMITY CELLULITIS History of Present Illness: PATIENT IS A 28-YEAR-OLD GENTLEMAN WHO CAME INTO THE HOSPITAL WITH PAIN IN THE RIGHT LOWER EXTREMITY. PATIENT WAS FOUND TO HAVE CELLULITIS. 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 WE WILL GO AHEAD AND START HIM ON IV ANTIBIOTICS. ALSO ANTI-INFLAMMATORIES. HE WILL BE ADMITTED TO THE HOSPITAL FOR FURTHER EVALUATION. Allergies Penicillins Allergy (Verified 11/03/19 05:24) Hives/Rash trazodone Allergy (Verified 11/03/19 05:24) Hives/Rash - Past Medical/Surgical History Has patient received pneumonia vaccine in the past: No -: MORBID OBESITY Past Surgical History: Patient denies surgical history - Family History Father Family History: Reviewed- Non-Contributory - Social History Smoking Status: Never smoker Alcohol use: Yes CD- Drugs: No Caffeine use: No Review of Systems 10-point ROS is otherwise unremarkable Physical Examination - Vital Signs Temperature: 100.4 F Blood Pressure: 112/48 Pulse: 94 Respirations: 18 Pulse Ox (%): 100 - Physical Exam General: Alert, In no apparent distress, Oriented x3 HEENT: Atraumatic, PERRLA, Mucous membr. moist/pink, EOMI, Sclerae nonicteric Neck: Supple, 2+ carotid pulse no bruit, No LAD, Without JVD or thyroid abnorma lity Respiratory: Clear to auscultation bilaterally, Normal air movement Cardiovascular: Regular rate/rhythm, Normal S1 S2, No murmurs Gastrointestinal: Normal bowel sounds, Soft and benign, Non-distended, No tenderness Musculoskeletal: No clubbing, Swelling, Erythema, Tenderness Integumentary: Tenderness/swelling, Erythema, Warmth Neurological: Normal gait, Normal speech, Normal strength at 5/5 x4 extr, Normal tone, Sensation intact, Cranial nerves 3-12 intact, Normal affect Lymphatics: No axilla or inguinal lymphadenopathy - Studies Laboratory Data (last 24 hrs) 11/03/19 00:40: PT 12.4, INR 1.05 11/03/19 00:40: WBC 10.7, Hgb 11.3 L, Hct 34.3 L, Plt Count 207 11/03/19 00:40: Sodium 139, Potassium 3.8, BUN 21 H, Creatinine 1.18, Glucose 100, Magnesium 1.7 L, Total Bilirubin 0.4, AST 20, ALT 30, Alkaline Phosphatase 66, Lipase 57 L Microbiology Data (last 24 hrs): 11/03/19 02:15 Nasopharnyx Coronavirus COVID-19 PCR - Final Assessment & Plan - Problems (Diagnosis) (1) Cellulitis of right lower extremity Current Visit: Yes Status: Acute (2) Morbid obesity with BMI of 60.0-69.9, adult Current Visit: Yes Status: Acute (3) HTN (hypertension) Current Visit: Yes Status: Acute - Plan 1. CONTINUE WITH IV ANTIBIOTIC 2. CONTINUE WITH LOCAL WOUND CARE 3. WOUND CARE CONSULTATION/SURGICAL CONSULTATION 4. GENTLE IV HYDRATION 5. MONITOR CBC 6. STRICT BLOOD SUGAR MONITORING 7. PAIN CONTROL 8. GI AND DVT PROPHYLAXIS Discharge Plan: Home Plan to discharge in: Greater than 2 days - Advance Directives Does patient have a Living Will: No Does patient have a Durable POA for Healthcare: No - Code Status/Comfort Care Code Status Assessed: Yes Code Status: Full Code Critical Care: No Time Spent Managing PTS Care (In Minutes): 45
[2019-11-03] MEDS: IBUPROFEN 400 MG TAB PO PRN (14:40)
[2019-11-03] MEDS ORDERED: ENOXAPARIN 40 MG/0.4 ML SQ SCH (17:00)
[2019-11-03] MEDS: WATER FOR INJ,STERILE 10 ML IV SCH (17:46)
[2019-11-03] MEDS: HYDROCORTISONE SUC 100 MG INJ IV SCH (17:48)
[2019-11-03] MEDS: VANCOMYCIN 2 GM in NA CHLORIDE 0.9% 500 ML IVPB SCH (17:48)
[2019-11-04] MEDS: IBUPROFEN 400 MG TAB PO PRN ×2 (01:27→21:35)
[2019-11-04] MEDS: ACETAMINOPHEN 500 MG TAB PO PRN ×3 (03:30→23:08)
[2019-11-04] MEDS: Levofloxacin 750mg IV 750 MG/150 ML BAG IV SCH (03:50)
[2019-11-04] MEDS: VANCOMYCIN 2 GM in NA CHLORIDE 0.9% 500 ML IVPB SCH ×2 (05:55→17:59)
[2019-11-04] MEDS: HYDROCORTISONE SUC 100 MG INJ IV SCH ×5 (05:55→23:49)
[2019-11-04] MEDS: WATER FOR INJ,STERILE 10 ML IV SCH ×5 (05:56→23:49)
[2019-11-04] MEDS: LACTOBACILLUS/ACIDOPHILUS TAB PO SCH ×3 (08:18→21:35)
--- NOTE | 2019-11-04 09:32 | RAD REPORT ---
EXAM DESCRIPTION: RAD - Tib Fib Right - 11/04/2019 6:53 am CLINICAL HISTORY: cellulitis; fever; leukocytosis COMPARISON: No comparisons FINDINGS: No fracture is identified. There is no dislocation or periosteal reaction noted. No acute or suspicious bony finding. Prominent edema changes are seen in the soft tissues around the leg primarily along the anterior leg including anterior to the knee joint. This subcutaneous fatty change has no air or foreign body. IMPRESSION: Soft tissue edema changes are seen without air or foreign body. No acute bone finding.
[2019-11-04] MEDS ORDERED: ACETAMINOPHEN 500 MG TAB PO ONE (09:36)
--- NOTE | 2019-11-04 09:42 | P.PN ---
Subjective Date of Service: 11/04/19 Subjective: No new changes, No C/O voiced patient is still having some pain. Patient is also febrile with temp of a 102. Decision was made to get a x-ray which did not reveal any air in the tissue. Patient also having some chest discomfort and will get EKG and troponins to further evaluate. Continue with anticoagulation. Review of Systems 10-point ROS is otherwise unremarkable Physical Examination - Vital Signs Temperature: 97.8 F Blood Pressure: 127/60 Pulse: 95 Respirations: 18 Pulse Ox (%): 94 - Physical Exam General: Alert, In no apparent distress, Oriented x3 Respiratory: Clear to auscultation bilaterally, Normal air movement Cardiovascular: Regular rate/rhythm, Normal S1 S2, Systolic murmur Gastrointestinal: Normal bowel sounds, Soft and benign, Non-distended, No tenderness Musculoskeletal: No clubbing, Swelling, Erythema, Tenderness, Warmth Integumentary: Tenderness/swelling, Erythema, Warmth Neurological: Normal tone, Sensation intact, Cranial nerves 3-12 intact - Studies Medications List Reviewed: Yes Assessment & Plan - Problems (Diagnosis) (1) Cellulitis of right lower extremity Current Visit: Yes Status: Acute (2) Morbid obesity with BMI of 60.0-69.9, adult Current Visit: Yes Status: Acute (3) HTN (hypertension) Current Visit: Yes Status: Acute - Plan Continue with current plan of care at this time: 1. CONTINUE WITH IV ANTIBIOTIC 2. CONTINUE WITH LOCAL WOUND CARE 3. WOUND CARE CONSULTATION/SURGICAL CONSULTATION 4. GENTLE IV HYDRATION 5. MONITOR CBC 6. STRICT BLOOD SUGAR MONITORING 7. PAIN CONTROL 8. GI AND DVT PROPHYLAXIS Discharge Plan: Home - Advance Directives Does patient have a Living Will: No Does patient have a Durable POA for Healthcare: No - Code Status/Comfort Care Code Status: Full Code
[2019-11-04] MEDS: ENOXAPARIN 40 MG/0.4 ML SQ SCH ×2 (10:32→21:35)
[2019-11-04 11:57] LABS: Absolute Lymphocytes (CBC) 0.8 K/uL (0.7-4.9); Basophils % 0.2 % (0-1.3); Hematocrit 31.6 % (39.6-49.0); Lymphocytes % 5.5 % (15.3-44.8); MPV 10.2 fL (7.6-11.3); RBC Red Blood Cell Count 3.74 M/uL (4.33-5.43)
[2019-11-04 12:15] LABS: Potassium 3.9 mmol/L (3.5-5.1)
[2019-11-04] MEDS: MORPHINE 4 MG/ML SYR IV PRN ×2 (12:30→17:53)
[2019-11-04 12:46] LABS: White Blood Cell Scan OK
[2019-11-04 12:47] LABS: Blood Morphology Comment NOTED (NOT SEEN); Platelet Estimate ADEQ
--- NOTE | 2019-11-04 13:10 | RAD REPORT ---
EXAM DESCRIPTION: CT - Thorax Wo Con - 11/04/2019 12:10 pm CLINICAL HISTORY: Chest Pain COMPARISON: Chest Single View dated 11/03/2019 TECHNIQUE: Axial 5 mm thick images of the chest were obtained without IV contrast. All CT scans are performed using dose optimization technique as appropriate and may include automated exposure control or mA/KV adjustment according to patient size. FINDINGS: Moderately large area of consolidation is present in the posteroinferior aspect of the lef t lower lobe. This area is not optimally visualized on the portable exam due to the lower lung volume s. Patchy airspace opacification is present in the medial gutter of the right lung base. Minimal airs pace opacities are present in the midportion of the left upper lobe. Mid and upper right lung field a re clear of any definitive infiltrate. No cavitation. No abnormal mediastinal or hilar masses or lymphadenopathy seen. No gross aortic or pulmonary artery finding suspected. No pericardial effusion. No chest wall mass or abnormal axillary lymphadenopathy. IMPRESSION: Moderately large area of consolidation in the posterior gutter on the left and minimally in the posterior gutter on the right. Minimal airspace opacities in the mid left lung field. Findings are more typical for non COVID community-acquired pneumonia. However, there is some minimal air space opacification in the mid left lung field that can be seen with a COVID-19 pneumonia. Corre lation is needed with results of coronal virus testing.
--- NOTE | 2019-11-04 15:03 | EKG ---
Test Date: 2019-11-04 Test Time: 09:02:22 Beater Operator: AUGIE MEASUREMENT RESULTS: Intervals: Rate: 93 CA: 138 QRSD: 78 QT: 348 QTc: 432 [place]: P: 70 CA: 138 QRS: 73 T: 46 INTERPRETIVE STATEMENTS: Normal sinus rhythm Normal ECG Compared to ECG 11/03/2019 00:11:18 Sinus tachycardia no longer present Electronically Signed On 11-04-19 15:02:40 CDT by Sameer Phelan
[2019-11-04] MEDS: NA CHLORIDE 0.9% 1,000 ML IV SCH ×2 (15:15→20:00)
[2019-11-05] MEDS: NA CHLORIDE 0.9% 1,000 ML IV SCH ×2 (04:08→16:00)
[2019-11-05] MEDS: Levofloxacin 750mg IV 750 MG/150 ML BAG IV SCH (04:08)
--- NOTE | 2019-11-05 04:18 | P.PN ---
Subjective Date of Service: 11/05/19 Patient continues to improve. He still having pain in his leg is still very erythema this. I will continue with IV antibiotic therapy for another 48 hr. His cellulitis extends from the thigh past the knee joint all the way to the ankle. Continue with pain control and IV antibiotic therapy. Review of Systems 10-point ROS is otherwise unremarkable Physical Examination - Vital Signs Temperature: 98.0 F Blood Pressure: 116/52 Pulse: 95 Respirations: 16 Pulse Ox (%): 90 - Physical Exam General: Alert, In no apparent distress, Oriented x3, Obese Respiratory: Diminished, Crackles/rales Cardiovascular: Regular rate/rhythm, Normal S1 S2, No murmurs Gastrointestinal: Normal bowel sounds, Soft and benign, Non-distended, No tenderness Musculoskeletal: No clubbing, Swelling, Erythema, Tenderness, Warmth Integumentary: Tenderness/swelling, Erythema, Warmth Neurological: Normal strength at 5/5 x4 extr, Normal tone, Sensation intact, Cranial nerves 3-12 intact - Studies Medications List Reviewed: Yes Assessment & Plan - Problems (Diagnosis) (1) Cellulitis of right lower extremity Current Visit: Yes Status: Acute (2) Morbid obesity with BMI of 60.0-69.9, adult Current Visit: Yes Status: Acute (3) HTN (hypertension) Current Visit: Yes Status: Acute - Plan Continue with current plan of care at this time: 1. CONTINUE WITH IV ANTIBIOTIC- continue IV vancomycin and Levaquin along with clindamycin 2. CONTINUE WITH LOCAL WOUND CARE 3. WOUND CARE CONSULTATION/SURGICAL CONSULTATION 4. GENTLE IV HYDRATION 5. MONITOR CBC 6. STRICT BLOOD SUGAR MONITORING 7. PAIN CONTROL 8. GI AND DVT PROPHYLAXIS Discharge Plan: Home Plan to discharge in: Greater than 2 days - Advance Directives Does patient have a Living Will: No Does patient have a Durable POA for Healthcare: No - Code Status/Comfort Care Code Status: Full Code
[2019-11-05] MEDS: MORPHINE 4 MG/ML SYR IV PRN ×3 (04:41→15:20)
[2019-11-05] MEDS: WATER FOR INJ,STERILE 10 ML IV SCH ×3 (05:49→16:59)
[2019-11-05] MEDS: HYDROCORTISONE SUC 100 MG INJ IV SCH ×3 (05:49→16:58)
[2019-11-05] MEDS: VANCOMYCIN 2 GM in NA CHLORIDE 0.9% 500 ML IVPB SCH ×2 (05:50→16:08)
[2019-11-05 07:44] LABS: ALT/SGPT 20 U/L (12-78); AST/SGOT 28 U/L (15-37); Albumin 2.2 g/dL (3.4-5.0); Alkaline Phosphatase 46 U/L (45-117); BUN Blood Urea Nitrogen 10 mg/dL (7-18); Bicarbonate 21 mmol/L (21-32); Bilirubin Total 0.6 mg/dL (0.2-1.0); Glucose Level 99 mg/dL (74-106); NT PRO-BNP 2760 pg/mL (<125); Potassium 4.3 mmol/L (3.5-5.1); Protein, Total 6.7 g/dL (6.4-8.2); Sodium Level 140 mmol/L (136-145); Troponin I 0.04 ng/mL (0.0-0.045)
[2019-11-05] MEDS: CLINDAMYCIN INJ 900 MG in NA CHLORIDE 0.9% 50 ML IV SCH ×2 (10:27→16:09)
[2019-11-05] MEDS: ENOXAPARIN 40 MG/0.4 ML SQ SCH ×2 (10:28→20:11)
[2019-11-05] MEDS: LACTOBACILLUS/ACIDOPHILUS TAB PO SCH ×3 (10:29→20:11)
[2019-11-05] MEDS: ALBUTEROL 2.5 MG/3 ML NEB SOL NEB SCH ×4 (11:30→20:00)
[2019-11-05] MEDS: IPRATROPIUM BROM 0.5MG/2.5ML NEB SCH ×4 (11:30→20:00)
[2019-11-05] MEDS: ACETAMINOPHEN 500 MG TAB PO PRN (15:12)
[2019-11-05 15:18] LABS: Absolute Lymphocytes (CBC) 0.8 K/uL (0.7-4.9); Basophils % 0.3 % (0-1.3); Hematocrit 27.3 % (39.6-49.0); Lymphocytes % 7.8 % (15.3-44.8); MPV 10.6 fL (7.6-11.3)
[2019-11-05] MEDS: IBUPROFEN 400 MG TAB PO PRN (18:19)
[2019-11-05] MEDS: HYDROCODONE/APAP 7.5/325 MG TAB PO PRN (20:11)
[2019-11-05] MEDS ORDERED: FUROSEMIDE 20 MG/ 2ML VIAL IV ONE (22:13)
[2019-11-05] MEDS ORDERED: ALBUMIN HUMAN 25% 50 ML IV ONE (22:13)
[2019-11-06] MEDS: HYDROCORTISONE SUC 100 MG INJ IV SCH ×4 (00:02→18:00)
[2019-11-06] MEDS: CLINDAMYCIN INJ 900 MG in NA CHLORIDE 0.9% 50 ML IV SCH ×3 (00:02→17:00)
[2019-11-06] MEDS: NA CHLORIDE 0.9% 1,000 ML IV SCH (00:10)
[2019-11-06] MEDS: HYDROCODONE/APAP 7.5/325 MG TAB PO PRN ×2 (02:16→10:05)
--- NOTE | 2019-11-06 03:27 | P.PN ---
Subjective Date of Service: 11/06/19 Patient apparently got more short of breath yesterday. Patient was placed on 5 L oxygen. Patient also had a temp of a 103 once again. I'll get a CT scan to further evaluate the right leg. I also did a chest x-ray. Patient may have increased amount of pulmonary edema. BNP is elevated. Will also diurese the patient. Patient may be 3rd spacing fluid because of hypoalbuminemia. Will supplement albumin as well. Review of Systems 10-point ROS is otherwise unremarkable Physical Examination - Vital Signs Temperature: 98.0 F Blood Pressure: 116/52 Pulse: 95 Respirations: 16 Pulse Ox (%): 90 - Physical Exam General: Alert, In no apparent distress, Oriented x3 Respiratory: Diminished, Crackles/rales Cardiovascular: Regular rate/rhythm, Normal S1 S2, Systolic murmur Gastrointestinal: Normal bowel sounds, Soft and benign, Non-distended, No tenderness Musculoskeletal: No clubbing, Swelling, Erythema, Tenderness Neurological: Normal strength at 5/5 x4 extr, Sensation intact, Cranial nerves 3-12 intact - Studies Medications List Reviewed: Yes Assessment & Plan - Problems (Diagnosis) (1) Cellulitis of right lower extremity Current Visit: Yes Status: Acute (2) Morbid obesity with BMI of 60.0-69.9, adult Current Visit: Yes Status: Acute (3) HTN (hypertension) Current Visit: Yes Status: Acute (4) Dyspnea Current Visit: Yes Status: Acute (5) Hypoalbuminemia Current Visit: Yes Status: Acute - Plan Continue with current plan of care at this time: 1. CONTINUE WITH IV ANTIBIOTIC- continue IV vancomycin and Levaquin along with clindamycin 2. CONTINUE WITH LOCAL WOUND CARE 3. WOUND CARE CONSULTATION/SURGICAL CONSULTATION MAY BE NECESSARY IF CT SCAN SHOWS ANY EVIDENCE OF ABSCESS 4. GENTLE IV HYDRATION 5. MONITOR CBC 6. STRICT BLOOD SUGAR MONITORING 7. PAIN CONTROL 8. PROBIOTICS 9. DIURESE PATIENT 10. INCREASE PROTEIN SUPPLEMENTATION 11. GI AND DVT PROPHYLAXIS Discharge Plan: Home Plan to discharge in: Greater than 2 days - Advance Directives Does patient have a Living Will: No Does patient have a Durable POA for Healthcare: No - Code Status/Comfort Care Code Status: Full Code Critical Care: No Time Spent Managing PTS Care (In Minutes): 35
[2019-11-06] MEDS: ALBUTEROL 2.5 MG/3 ML NEB SOL NEB SCH ×6 (04:00→20:00)
[2019-11-06] MEDS: IPRATROPIUM BROM 0.5MG/2.5ML NEB SCH ×6 (04:00→20:00)
[2019-11-06] MEDS: Levofloxacin 750mg IV 750 MG/150 ML BAG IV SCH (04:31)
[2019-11-06 04:47] LABS: Absolute Lymphocytes (CBC) 1.1 K/uL (0.7-4.9); Basophils % 0.4 % (0-1.3); Hematocrit 25.6 % (39.6-49.0); Lymphocytes % 11.1 % (15.3-44.8); MPV 9.6 fL (7.6-11.3); Protime INR 1.21; RBC Red Blood Cell Count 3.08 M/uL (4.33-5.43)
[2019-11-06 05:19] LABS: ALT/SGPT 21 U/L (12-78); AST/SGOT 23 U/L (15-37); Albumin 2.1 g/dL (3.4-5.0); Alkaline Phosphatase 45 U/L (45-117); BUN Blood Urea Nitrogen 10 mg/dL (7-18); Bicarbonate 24 mmol/L (21-32); Bilirubin Total 0.7 mg/dL (0.2-1.0); Glucose Level 129 mg/dL (74-106); NT PRO-BNP 3041 pg/mL (<125); Phosphorus 2.5 mg/dL (2.5-4.9); Potassium 3.8 mmol/L (3.5-5.1); Protein, Total 6.8 g/dL (6.4-8.2); Sodium Level 140 mmol/L (136-145)
[2019-11-06] MEDS: VANCOMYCIN 2 GM in NA CHLORIDE 0.9% 500 ML IVPB SCH ×2 (06:43→16:59)
[2019-11-06] MEDS: WATER FOR INJ,STERILE 10 ML IV SCH ×4 (06:43→18:00)
[2019-11-06] MEDS: ACETAMINOPHEN 500 MG TAB PO SCH ×3 (07:34→21:57)
[2019-11-06] MEDS: LEVOTHYROXINE SOD 0.125 MG TAB PO SCH (07:34)
[2019-11-06] MEDS: ALBUMIN HUMAN 25% 50 ML IV SCH ×2 (08:00→13:54)
[2019-11-06] MEDS: FUROSEMIDE 40 MG/4 ML VIAL IV SCH ×3 (08:24→16:59)
[2019-11-06] MEDS: MAGNES/ALUMIN/SIMET 30ML UCUP PO PRN ×2 (08:25→12:54)
[2019-11-06] MEDS: LACTOBACILLUS/ACIDOPHILUS TAB PO SCH ×3 (08:26→20:39)
[2019-11-06] MEDS: ENOXAPARIN 40 MG/0.4 ML SQ SCH ×2 (08:26→20:40)
[2019-11-06] MEDS: PANTOPRAZOLE 40MG TABLET PO SCH (08:26)
--- NOTE | 2019-11-06 12:27 | RAD REPORT ---
EXAM DESCRIPTION: RAD - Chest Single View - 11/05/2019 10:38 pm CLINICAL HISTORY: pneumonia Chest pain. COMPARISON: Chest Single View dated 11/03/2019 FINDINGS: Portable technique limits examination quality. Mild interstitial prominence is present bilaterally suggesting mild interstitial pulmonary edema or i nterstitial pneumonia. The heart is upper limit normal size. No displaced fractures.
--- NOTE | 2019-11-06 12:49 | RAD REPORT ---
EXAM DESCRIPTION: CT - Lower Extremity W/ Cont - 11/06/2019 10:26 am CLINICAL HISTORY: Cellulitis with persistent fever Swelling COMPARISON: No comparisons FINDINGS: Right lower extremity soft tissues demonstrates skin thickening and subcutaneous inflammat ory changes suggesting cellulitis. No well defined fluid collection is evident. No foreign body. No f racture underlying aggressive marrow lesion. All CT scans are performed using dose optimization technique as appropriate and may include automated exposure control or mA/KV adjustment according to patient size. IMPRESSION: Findings suggesting right lower extremity cellulitis is noted. There is no well-defined fluid collection to indicate abscess.
[2019-11-06] MEDS: MORPHINE 4 MG/ML SYR IV PRN (12:54)
[2019-11-06] MEDS: ACETAMINOPHEN 500 MG TAB PO PRN (18:35)
[2019-11-07] MEDS: FUROSEMIDE 40 MG/4 ML VIAL IV SCH ×2 (00:28→09:13)
[2019-11-07] MEDS: HYDROCORTISONE SUC 100 MG INJ IV SCH ×4 (00:28→17:04)
[2019-11-07] MEDS: WATER FOR INJ,STERILE 10 ML IV SCH ×4 (00:28→17:05)
[2019-11-07] MEDS: CLINDAMYCIN INJ 900 MG in NA CHLORIDE 0.9% 50 ML IV SCH ×2 (00:28→09:11)
[2019-11-07] MEDS: MORPHINE 4 MG/ML SYR IV PRN ×3 (00:30→23:42)
[2019-11-07] MEDS: IPRATROPIUM BROM 0.5MG/2.5ML NEB SCH ×7 (03:05→23:30)
[2019-11-07] MEDS: ALBUTEROL 2.5 MG/3 ML NEB SOL NEB SCH ×7 (03:05→23:30)
[2019-11-07] MEDS: HYDROCODONE/APAP 7.5/325 MG TAB PO PRN ×2 (03:40→11:40)
[2019-11-07] MEDS: Levofloxacin 750mg IV 750 MG/150 ML BAG IV SCH (03:40)
[2019-11-07] MEDS: LEVOTHYROXINE SOD 0.125 MG TAB PO SCH (05:00)
[2019-11-07] MEDS: ACETAMINOPHEN 500 MG TAB PO SCH ×2 (05:00→05:23)
[2019-11-07] MEDS: VANCOMYCIN 2 GM in NA CHLORIDE 0.9% 500 ML IVPB SCH ×2 (05:00→17:04)
--- NOTE | 2019-11-07 05:59 | P.PN ---
Subjective Date of Service: 11/07/19 PATIENT DOING MUCH BETTER. PATIENT HAS BEEN DIURESED EFFECTIVELY. GET AN ECHO ON HIM WELL BECAUSE OF POSSIBLY NEW ONSET CHF. HIS CELLULITIS IS STABLE. PROCALCITONIN LEVEL HAS GONE DOWN. PATIENT STILL REMAINING FEBRILE. WILL CONTINUE WITH ANTIBIOTIC THERAPY AT THIS TIME. Review of Systems 10-point ROS is otherwise unremarkable Physical Examination - Vital Signs Temperature: 98.9 F Blood Pressure: 130/75 Pulse: 84 Respirations: 17 Pulse Ox (%): 93 - Physical Exam General: Alert, In no apparent distress, Oriented x3 Respiratory: Crackles/rales Cardiovascular: Regular rate/rhythm, Normal S1 S2, No murmurs Gastrointestinal: Normal bowel sounds, Soft and benign, Non-distended, No tenderness Musculoskeletal: No clubbing, No swelling, No tenderness - Studies Medications List Reviewed: Yes Assessment & Plan - Problems (Diagnosis) (1) Cellulitis of right lower extremity Current Visit: Yes Status: Acute (2) Morbid obesity with BMI of 60.0-69.9, adult Current Visit: Yes Status: Acute (3) HTN (hypertension) Current Visit: Yes Status: Acute (4) Dyspnea Current Visit: Yes Status: Acute (5) Hypoalbuminemia Current Visit: Yes Status: Acute (6) CHF (congestive heart failure) Current Visit: Yes Status: Acute - Plan Continue with current plan of care at this time: 1. CONTINUE WITH IV ANTIBIOTIC- continue IV vancomycin and Levaquin along with clindamycin 2. CONTINUE WITH LOCAL WOUND CARE 3. CT SCAN IS POSITIVE FOR CELLULITIS; NO EVIDENCE OF FASCIITIS 4. HEP-LOCK IV; ECHOCARDIOGRAM; MONITOR BNP 5. MONITOR CBC 6. STRICT BLOOD SUGAR MONITORING 7. PAIN CONTROL 8. PROBIOTICS 9. DIURESE PATIENT 10. INCREASE PROTEIN SUPPLEMENTATION 11. GI AND DVT PROPHYLAXIS Discharge Plan: Home Plan to discharge in: Greater than 2 days - Advance Directives Does patient have a Living Will: No Does patient have a Durable POA for Healthcare: No - Code Status/Comfort Care Code Status: Full Code Critical Care: No Time Spent Managing PTS Care (In Minutes): 30
[2019-11-07] MEDS: ENSURE HIGH PROTEIN 237 ML CAN PO SCH ×3 (09:12→21:23)
[2019-11-07] MEDS: ENOXAPARIN 40 MG/0.4 ML SQ SCH ×2 (09:13→21:22)
[2019-11-07] MEDS: PANTOPRAZOLE 40MG TABLET PO SCH (09:14)
[2019-11-07] MEDS: LACTOBACILLUS/ACIDOPHILUS TAB PO SCH ×3 (09:14→21:22)
[2019-11-07 11:02] LABS: Absolute Lymphocytes (CBC) 1.3 K/uL (0.7-4.9); Basophils % 0.7 % (0-1.3); Hematocrit 26.2 % (39.6-49.0); Lymphocytes % 13.9 % (15.3-44.8); MPV 9.1 fL (7.6-11.3); RBC Red Blood Cell Count 3.18 M/uL (4.33-5.43)
[2019-11-07 11:22] LABS: ALT/SGPT 26 U/L (12-78); AST/SGOT 25 U/L (15-37); Albumin 2.2 g/dL (3.4-5.0); Alkaline Phosphatase 48 U/L (45-117); BUN Blood Urea Nitrogen 11 mg/dL (7-18); Bicarbonate 30 mmol/L (21-32); Bilirubin Total 0.8 mg/dL (0.2-1.0); Glucose Level 100 mg/dL (74-106); Magnesium 1.9 mg/dL (1.8-2.4); NT PRO-BNP 2996 pg/mL (<125); Phosphorus 3.2 mg/dL (2.5-4.9); Potassium 3.2 mmol/L (3.5-5.1); Protein, Total 7.2 g/dL (6.4-8.2); Sodium Level 140 mmol/L (136-145)
[2019-11-07] MEDS ORDERED: POTASSIUM 25 MEQ EFFERV TAB PO ONE (12:00)
--- NOTE | 2019-11-07 12:18 | ECHO ---
HEIGHT: 5 ft 11 in WEIGHT: 450 lb 0 oz DATE OF STUDY: 11/07/[address]: Dominic Darby MD 2-DIMENSIONAL: YES M.MODE: YES DOPPLER: YES COLOR FLOW: YES TDS: YES PORTABLE: NO DEFINITY: NO BUBBLE STUDY: NO DIAGNOSIS: CONGESTIVE HEART FAILURE CARDIAC HISTORY: CATHERIZATION: NO SURGERY: NO PROSTHETIC VALVE: NO PACEMAKER: NO MEASUREMENTS (cm) DIASTOLIC (NORMALS) SYSTOLIC (NORMALS) IVSd 1.1 (0.6-1.2) LA Diam 4.4 (1.9-4.0) LVEF 65% LVIDd 5.0 (3.5-5.7) LVIDs 3.2 (2.0-3.5) %FS 36% LVPWd 1.3 (0.6-1.2) Ao Diam 2.8 (2.0-3.7) 2 DIMENSIONAL ASSESSMENT: RIGHT ATRIUM: NORMAL LEFT ATRIUM: ENLARGED RIGHT VENTRICLE: NORMAL LEFT VENTRICLE: NORMAL TRICUSPID VALVE: MITRAL VALVE: PULMONIC VALVE: AORTIC VALVE: PERICARDIAL EFFUSION: NON AORTIC ROOT: LEFT VENTRICULAR WALL MOTION: NORMAL. DOPPLER/COLOR FLOW: MILD TO MODERATE TRICUSPID REGURGITATION. MILD MITRAL REGURGITATION. MILD PULMONIC INSUFFICIENCY. PULMONARY HYPERTENSION. COMMENTS: NORMAL LEFT VENTRICULAR EJECTION FRACTION 55-60% WITH NORMAL WALL MOTION. NORMAL DIASTOLIC FUNCTION. AT LEAST MODERATE PULMONARY HYPERTENSION WITH RIGHT VENTRICULAR SYSTOLIC PRESSURE 45-50mmHg. MILD MITRAL REGURGITATION, MILD PULMONIC INSUFFICIENCY, MILD TO MODEREATE TRICUSPID REGURGITATION. TECHNOLOGIST: FRANK FREEDMAN/ NICOLAS BURTON
[2019-11-07] MEDS: FUROSEMIDE 20 MG/ 2ML VIAL IV SCH (16:26)
[2019-11-08] MEDS: WATER FOR INJ,STERILE 10 ML IV SCH ×3 (00:36→12:00)
[2019-11-08] MEDS: FUROSEMIDE 20 MG/ 2ML VIAL IV SCH ×2 (00:37→09:26)
[2019-11-08] MEDS: HYDROCORTISONE SUC 100 MG INJ IV SCH ×3 (00:37→12:00)
[2019-11-08] MEDS: IPRATROPIUM BROM 0.5MG/2.5ML NEB SCH ×2 (03:25→08:30)
[2019-11-08] MEDS: ALBUTEROL 2.5 MG/3 ML NEB SOL NEB SCH ×2 (03:25→08:30)
[2019-11-08] MEDS: Levofloxacin 750mg IV 750 MG/150 ML BAG IV SCH (04:11)
[2019-11-08] MEDS: VANCOMYCIN 2 GM in NA CHLORIDE 0.9% 500 ML IVPB SCH (05:59)
[2019-11-08] MEDS: LEVOTHYROXINE SOD 0.125 MG TAB PO SCH (06:02)
--- NOTE | 2019-11-08 09:08 | RAD REPORT ---
EXAM DESCRIPTION: CT - Chest For Pe Angio - 11/08/2019 8:34 am CLINICAL HISTORY: pulmonary HTN; r/o PE COMPARISON: Thorax Wo Con dated 11/04/2019; Chest Single View dated 11/05/2019 TECHNIQUE: Dynamically enhanced 3 mm thick images of the chest were obtained during administration o f approximately 150mL Isovue 370 IV contrast. Coronal and oblique MIP reconstruction images were gene rated and reviewed. Exam utilizes a protocol to evaluate the pulmonary arterial tree. All CT scans are performed using dose optimization technique as appropriate and may include automated exposure control or mA/KV adjustment according to patient size. FINDINGS: Large body habitus and patient motion limits the examination particularly in the far perip heral branches. Exam is suboptimal but felt to be sufficient for diagnosis of large central pulmonary embolic disease. No pulmonary emboli identified given these limitations. The aorta as imaged shows no acute or suspicious finding. Heart size is upper normal. No pericardial effusion. Dense consolidation in the posterior base left lower lobe has mostly cleared. Patient shows ground-gl ass airspace opacification throughout most of the left lower lobe with ground-glass opacities present in the mid and lower portions of each upper lobe and minimally in the right middle lobe. Posteromedi al right base airspace opacification present as well. No pleural effusion or pleural thickening. No mediastinal or hilar suspicious masses. No chest wall masses or abnormal axillary lymphadenopathy. IMPRESSION: Exam is limited as detailed. No pulmonary emboli identifiable. Substantial clearing of the posterior left base consolidation since November 03. Patient has developed extensive ground-glass opacification through much of the lung flores.This is pr obably a pulmonary edema pattern. COVID-19 pneumonia would be possible; however, the focal consolidat ion to diffuse ground-glass opacification transition is not a typical presentation.
[2019-11-08 09:18] VITALS: O2SAT 96
[2019-11-08] MEDS: ENOXAPARIN 40 MG/0.4 ML SQ SCH (09:25)
[2019-11-08] MEDS: ENSURE HIGH PROTEIN 237 ML CAN PO SCH (09:26)
[2019-11-08] MEDS: LACTOBACILLUS/ACIDOPHILUS TAB PO SCH (09:26)
[2019-11-08] MEDS: PANTOPRAZOLE 40MG TABLET PO SCH (09:26)
--- NOTE | 2019-11-08 11:09 | P.DS ---
Admission Date: 11/03/19 Discharge Date: 11/08/19 Disposition: ROUTINE DISCHARGE Discharge Condition: GOOD Reason for Admission: RIGHT LOWER EXTREMITY CELLULITIS Brief History of Present Illness: 28-YEAR-OLD GENTLEMAN WHO CAME INTO THE HOSPITAL WITH PAIN IN THE RIGHT LOWER EXTREMITY. PATIENT WAS FOUND TO HAVE CELLULITIS. 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 WE WILL GO AHEAD AND START HIM ON IV ANTIBIOTICS. ALSO ANTI-INFLAMMATORIES. HE WILL BE ADMITTED TO THE HOSPITAL FOR FURTHER EVALUATION. Hospital Course: The patient was admitted and was monitored closely under telemetry. Started on IV antibiotic and pain medication, he developed shortness of breath and has been diaphoretic and complaints of chest pain in between. The CT of the chest was done which showed pneumonia. Underwent IV antibiotics to cover for pneumonia. CT of the lower extremity was showing cellulitis with no evidence of fascitis . Patient responded well to the treatment and is being discharged today in a stable condition with advice to continue p.o. antibiotics and also to follow up with PCP in 1 week and also was advised to do physical therapy and lifestyle Changes Vital Signs/Physical Exam: Temp Pulse Resp BP Pulse Ox 99.7 F 83 32 H 117/58 L 93 11/08/19 08:00 11/08/19 09:26 11/08/19 08:00 11/08/19 09:26 11/08/19 08:00 General: Alert, In no apparent distress, Obese HEENT: Atraumatic, Normocephalic Neck: Supple Respiratory: Clear to auscultation bilaterally, Normal air movement Cardiovascular: Normal pulses, Regular rate/rhythm, Normal S1 S2 Capillary refill: <2 Seconds Gastrointestinal: Soft and benign Musculoskeletal: Swelling Integumentary: Rash(es), Tenderness/swelling Neurological: Normal speech, Normal strength at 5/5 x4 extr Lymphatics: No axilla or inguinal lymphadenopathy Laboratory Data at Discharge: WBC 9.4 K/uL (4.3-10.9) 11/07/19 10:43 Hgb 8.8 g/dL (13.6-17.9) L 11/07/19 10:43 Hct 26.2 % (39.6-49.0) L 11/07/19 10:43 Plt Count 226 K/uL (152-406) D 11/07/19 10:43 PT 14.2 SECONDS (9.5-12.5) H 11/06/19 04:27 INR 1.21 11/06/19 04:27 Sodium 140 mmol/L (136-145) 11/07/19 10:43 Potassium 3.2 mmol/L (3.5-5.1) L 11/07/19 10:43 BUN 11 mg/dL (7-18) 11/07/19 10:43 Creatinine 0.85 mg/dL (0.55-1.3) 11/07/19 10:43 Glucose 100 mg/dL (74-106) 11/07/19 10:43 Phosphorus 3.2 mg/dL (2.5-4.9) 11/07/19 10:43 Magnesium 1.9 mg/dL (1.8-2.4) 11/07/19 10:43 Total Bilirubin 0.8 mg/dL (0.2-1.0) 11/07/19 10:43 AST 25 U/L (15-37) 11/07/19 10:43 ALT 26 U/L (12-78) 11/07/19 10:43 Alkaline Phosphatase 48 U/L (45-117) 11/07/19 10:43 Troponin I 0.04 ng/mL (0.0-0.045) 11/05/19 07:02 Lipase 57 U/L (73-393) L 11/03/19 00:40 Home Medications: Levothyroxine [Synthroid*] 125 mcg PO [id number] 11/03/19 Doxycycline Monohydrate 100 mg PO BID #14 tablet 11/08/19 Furosemide [Lasix] 20 mg PO BIDL #30 tab 11/08/19 Hydrocodone 10/APAP 325 [[place] 10/325] 1 tab PO Q6H PRN #14 tab 11/08/19 Ibuprofen [Motrin] 600 mg PO Q6H PRN #30 tab 11/08/19 Sodium Hypochlorite [Dakin's] 473 ml MC BID 15 Days #1 solution 11/08/19 levoFLOXacin [Levofloxacin] 500 mg PO DAILY #7 tablet 11/08/19 New Medications: Sodium Hypochlorite [Dakin's] 473 ml MC BID 15 Days #1 solution Doxycycline Monohydrate 100 mg PO BID #14 tablet Furosemide [Lasix] 20 mg PO BIDL #30 tab levoFLOXacin [Levofloxacin] 500 mg PO DAILY #7 tablet Ibuprofen [Motrin] 600 mg PO Q6H PRN #30 tab PRN Reason: Pain Scale 5-7 (Moderate) Hydrocodone 10/APAP 325 [[place] 10/325] 1 tab PO Q6H PRN #14 tab PRN Reason: Pain Patient Discharge Instructions: OK TO DC IV AND DC HOME. FOLLOW-UP WITH PRIMARY CARE PROVIDER IN 1-2 WEEKS. FOLLOW-UP WITH CARDIOLOGY IN 1-2 WEEKS. RETURN TO THE ER IF. CALL or TEXT DR. MARTINES AT [phone] IF ANY QUESTIONS REGARDING HOSPITAL STAY. PLEASE CALL THE FLOOR AT [phone] IF ANY MEDICATION OR NURSING QUESTIONS. Diet: ADA Activity: PT eval and treatment Time spent managing pt's care (in minutes): 43
[2019-11-08 12:09] VITALS: BP 136/85; TEMP 98.5
[2019-11-08] MEDS: HYDROCODONE/APAP 7.5/325 MG TAB PO PRN (13:07)
== END 2019-11-08 13:35 | disposition home or self-care (01) | DRG 602 ==
LOC: ER 23:51 → ERHOLD 11-03 03:38 → 4TH 11-03 07:54 → 2ND 11-04 02:13 → 4TH 11-05 14:25 → 2ND 11-06 20:58
PROVIDERS: ADMIT Family Medicine; ATTEND Family Medicine
PROC: 8E0ZXY6 Isolation (ICD-10-PCS; principal; 2019-11-03)
DX: L03.115 Cellulitis of right lower limb (principal); J18.9 Pneumonia, unspecified organism; Z68.44 Body mass index [BMI] 60.0-69.9, adult; E66.01 Morbid (severe) obesity due to excess calories; E03.9 Hypothyroidism, unspecified; I11.0 Hypertensive heart disease with heart failure; I50.9 Heart failure, unspecified; E88.09 Other disorders of plasma-protein metabolism, not elsewhere classified; R06.02 Shortness of breath; R50.9 Fever, unspecified; R06.00 Dyspnea, unspecified; Z20.828 Contact with and (suspected) exposure to other viral communicable diseases; Z79.891 Long term (current) use of opiate analgesic; Z79.890 Hormone replacement therapy; Z79.899 Other long term (current) drug therapy; Z88.8 Allergy status to other drugs, medicaments and biological substances; Z88.0 Allergy status to penicillin
CPT/HCPCS: 36415; 71045; 71250; 71275; 73701; 80048; 80053; 80076; 80156; 80202; 82550; 82728; 82947; 83605; 83690; 83735; 83880; 84100; 84145; 84484; 85025; 85044; 85379; 85610; 86140; 87040; 93005; 93306; 93970; 94640; 94760; 96365; 96366; 96367; 96368; 96372; 96375; 99285; J0692; J1650; J1720; J1940; J2405; J3370; J3475; J7030; J7040; P9047; Q9967; U0002